=== PATIENT | male | born 1975 | race Caucasian/White ===

== ENCOUNTER 2016-06-05 09:22 | Emergency (ER) | payer SELFPAY ==
[~2016-06-05 09:22] MED LIST: BACT800T5 PO
[2016-06-05 09:33] VITALS: BP 137/81; PULSE 17; PULSE 81; RESP 15; TEMP 97.9; O2SAT 97
[2016-06-05] MEDS ORDERED: SODIUM CHLOR 0.9% 1000 ML INJ 1,000 ML IV ONE (10:00)
[2016-06-05] MEDS ORDERED: KETOROLAC TROMETHAMINE 30 MG/ML (IVP) VIAL IV PUSH ONE (10:00)
[2016-06-05 10:18] LABS: BACTERIA, URINE RARE /hpf; BLOOD, URINE NEG (NEG); COMMENT (UR) CULT NOT INDICATED; CULTURE IF INDICATED CULT NOT INDICATED; GLUCOSE,URINE NEG (NEG); KETONE, URINE NEG (NEG); NITRITE,URINE NEG (NEG); URINE COLOR YELLOW (YELLW/STRAW)
[2016-06-05 10:20] LABS: AUTOMATED NEUTROPHIL # 5.4 TH/MM3 (1.8-7.7); BASOPHIL % 0.3 % (0.0-2.0); EOSINOPHIL # 0.4 TH/MM3 (0-0.4); HEMATOCRIT 49.5 % (39.0-51.0); HEMO FLAGS DIFF FINAL; LYMPH % 27.1 % (9.0-44.0); LYMPHOCYTE # 2.5 TH/MM3 (1.0-4.8); MEAN CELL VOLUME 86.3 FL (80.0-100.0); MEAN CORPUSCULAR HEMOGLOBIN 28.9 PG (27.0-34.0); MEAN CORPUSCULAR HGB CONC 33.5 % (32.0-36.0); MONO % 9.3 % (0.0-8.0); NEUT % 59.3 % (16.0-70.0); PLATELET COUNT 196 TH/MM3 (150-450); RED BLOOD COUNT 5.74 MIL/MM3 (4.50-5.90); RED CELL DISTRIBUTION WIDTH 13.3 % (11.6-17.2); WHITE BLOOD COUNT 9.1 TH/MM3 (4.0-11.0)
[2016-06-05 10:29] LABS: POTASSIUM 4.5 MEQ/L (3.5-5.1)
[2016-06-05 10:31] LABS: INDIRECT BILIRUBIN 0.4 MG/DL (0.0-0.8); TOTAL BILIRUBIN ADULT 0.5 MG/DL (0.2-1.0)
--- NOTE | 2016-06-05 11:16 | RADRPT ---
EXAM DATE/TIME: 06/05/2016 10:37 [facility] COMPARISON: No previous studies available for comparison. INDICATIONS : Right flank pain for 4-5 days ORAL CONTRAST: No oral contrast ingested. RADIATION DOSE: 5.23 CTDIvol (mGy) MEDICAL HISTORY : None SURGICAL HISTORY : None. ENCOUNTER: Initial ACUITY: 4 - 6 days PAIN SCALE: 4/10 LOCATION: Right flank TECHNIQUE: Volumetric scanning of the abdomen and pelvis was performed. Using automated exposure control and ad justment of the mA and/or kV according to patient size, radiation dose was kept as low as reasonably achievable to obtain optimal diagnostic quality images. FINDINGS: LOWER LUNGS: The visualized lower lungs are clear. LIVER: Homogeneous density without lesion. There is no dilation of the biliary tree. No calcified gallston es. SPLEEN: Normal size without lesion. PANCREAS: Within normal limits. KIDNEYS: Normal in size and shape. There is no mass, stone, or hydronephrosis. There is a small 3 mm calcific ation in the right pelvis thought to be separate from the right ureter likely representing a phleboli th. ADRENAL GLANDS: Within normal limits. VASCULAR: There is no aortic aneurysm. BOWEL/MESENTERY: The stomach, small bowel, and colon demonstrate no acute abnormality. There is no free intraperitone al air or fluid. The appendix appears normal. ABDOMINAL WALL: Within normal limits. RETROPERITONEUM: There is no lymphadenopathy. BLADDER: No wall thickening or mass. REPRODUCTIVE: Within normal limits. INGUINAL: There is no lymphadenopathy or hernia. MUSCULOSKELETAL: There is anterior spondylolisthesis of L5 on S1 secondary to pars defects. CONCLUSION: No acute abnormality is seen. There is grade 1 anterior spondylolisthesis of L5 on S1 secondary to pa rs defects. Mono Tran MD on June 05, 2016 at 11:11 Board Certified Radiologist. This report was verified electronically.
--- NOTE | 2016-06-05 12:00 | PD ---
HPI Chief Complaint: Abdominal Pain Time Seen by Provider: 09:38 Travel History International Travel<30 days: No Contact w/Intl Traveler<30days: No Traveled to known affect area: No History of Present Illness HPI Patient is a 40-year-old male complaining of right lower quadrant abdominal pain. He says he has had the pain for the past few days, but it got worse today so he came in. He says at some point he did have pain to his right flank. He denies nausea or vomiting. He denies fever or chills. He denies any difficulty urinating. PFSH Past Medical History ADHD: No Cancer: No Cardiovascular Problems: No Diabetes: No Diminished Hearing: No Endocrine: No Gastrointestinal Disorders: No Genitourinary: No Immune Disorder: No Musculoskeletal: No Neurologic: No Psychiatric: No Reproductive: No Respiratory: No Migraines: No Seizures: No Thyroid Disease: No Ulcer: No Past Surgical History AICD: No Arteriovenous Shunt: No Insulin Pump: No Joint Replacement: No Pacemaker: No Other Surgery: No Social History Alcohol Use: Yes Tobacco Use: Yes (2 PACKS DAY) Substance Use: Yes (marijuana) Allergies-Medications (Allergen,Severity, Reaction): Coded Allergies: *MDRO Multi-Drug Resistant Organism (Unverified Adverse Reaction, Unknown , 06/05/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 SKIN: Warm and dry. HEAD: Atraumatic. Normocephalic. EYES: Pupils equal and round. No scleral icterus. ENT: Mucous membranes pink and moist. NECK: Trachea midline. No JVD. CARDIOVASCULAR: Regular rate and rhythm. No murmur appreciated. RESPIRATORY: No accessory muscle use. Clear to auscultation. Breath sounds equal bilaterally. GASTROINTESTINAL: Abdomen soft, non-tender, nondistended. No CVA tenderness. MUSCULOSKELETAL: No obvious deformities. No clubbing. No cyanosis. No edema. NEUROLOGICAL: Awake and alert. No obvious cranial nerve deficits. Motor grossly within normal limits. Normal speech. PSYCHIATRIC: Appropriate mood and affect; insight and judgment normal. Data Data Last Documented VS Vital Signs Date Time Temp Pulse Resp B/P Pulse Ox O2 Delivery O2 Flow Rate FiO2 06/05/16 09:37 20 06/05/16 09:33 97.9 81 137/81 97 Orders Complete Blood Count With Diff (06/05/16 09:56) Basic Metabolic Panel (Bmp) (06/05/16 09:56) Hepatic Functional Panel (06/05/16 09:56) Urinalysis - C+S If Indicated (06/05/16 09:56) Ct Abd/Pel W/O Iv Contrast (06/05/16 ) Ketorolac Inj (Toradol Inj) (06/05/16 10:00) Sodium Chlor 0.9% 1000 Ml Inj (Ns 1000 M (06/05/16 10:00) Labs Laboratory Tests Test 06/05/16 10:00 White Blood Count 9.1 TH/MM3 Red Blood Count 5.74 MIL/MM3 Hemoglobin 16.6 GM/DL Hematocrit 49.5 % Mean Corpuscular Volume 86.3 FL Mean Corpuscular Hemoglobin 28.9 PG Mean Corpuscular Hemoglobin 33.5 % Concent Red Cell Distribution Width 13.3 % Platelet Count 196 TH/MM3 Mean Platelet Volume 8.9 FL Neutrophils (%) (Auto) 59.3 % Lymphocytes (%) (Auto) 27.1 % Monocytes (%) (Auto) 9.3 % Eosinophils (%) (Auto) 4.0 % Basophils (%) (Auto) 0.3 % Neutrophils # (Auto) 5.4 TH/MM3 Lymphocytes # (Auto) 2.5 TH/MM3 Monocytes # (Auto) 0.8 TH/MM3 Eosinophils # (Auto) 0.4 TH/MM3 Basophils # (Auto) 0.0 TH/MM3 CBC Comment DIFF FINAL Differential Comment Urine Color YELLOW Urine Turbidity HAZY Urine pH 7.0 Urine Specific Pryor 1.012 Urine Protein NEG mg/dL Urine Glucose (UA) NEG mg/dL Urine Ketones NEG mg/dL Urine Occult Blood NEG Urine Nitrite NEG Urine Bilirubin NEG Urine Urobilinogen LESS THAN 2.0 MG/DL Urine Leukocyte Esterase NEG Urine RBC LESS THAN 1 /hpf Urine WBC 1 /hpf Urine Bacteria RARE /hpf Microscopic Urinalysis Comment CULT NOT INDICATED Sodium Level 137 MEQ/L Potassium Level 4.5 MEQ/L Chloride Level 103 MEQ/L Carbon Dioxide Level 29.0 MEQ/L Anion Gap 5 MEQ/L Blood Urea Nitrogen 14 MG/DL Creatinine 1.06 MG/DL Estimat Glomerular Filtration 78 ML/MIN Rate Random Glucose 95 MG/DL Calcium Level 9.1 MG/DL Total Bilirubin 0.5 MG/DL Direct Bilirubin 0.1 MG/DL Indirect Bilirubin 0.4 MG/DL Aspartate Amino Transf 15 U/L (AST/SGOT) Alanine Aminotransferase 22 U/L (ALT/SGPT) Alkaline Phosphatase 92 U/L Total Protein 7.6 GM/DL Albumin 4.0 GM/DL [facility] Medical Decision Making Medical Screen Exam Complete: Yes Emergency Medical Condition: Yes Medical Record Reviewed: Yes Differential Diagnosis UTI versus pyelonephritis versus renal stone Narrative Course Patient is a 40-year-old male comes in complaining of abdominal pain. Exam shows no acute abnormalities. IV established, labs sent. Patient given IV fluids and Toradol. Labs show no acute abnormalities. CT of the abdomen and pelvis performed show no acute abnormalities. Patient was going to be discharged home, however he left before he could be officially discharged. He did not receive discharge instructions. Diagnosis Primary Impression: Abdominal pain Qualified Code: R10.84 - Generalized abdominal pain Disposition: AGAINST MEDICAL ADVICE Condition: Stable Judith Bains MD Jun 05, 2016 12:00
== END 2016-06-05 12:34 | disposition left against medical advice (07) ==
LOC: NEPE 09:22
DX: R10.31 Right lower quadrant pain (principal); F17.210 Nicotine dependence, cigarettes, uncomplicated; F12.90 Cannabis use, unspecified, uncomplicated
CPT/HCPCS: 74176; 80048; 80076; 81001; 85025; 96361; 96374; 99284; J1885; J7030

== ENCOUNTER 2017-02-01 11:36 | Emergency (ER) | payer SELFPAY ==
[~2017-02-01] VITALS: Ht 177.8 cm; Wt 77.3 kg
[2017-02-01 11:37] VITALS: BP 130/74; RESP 16; TEMP 98.6; O2SAT 98
--- NOTE | 2017-02-01 12:01 | PD ---
HPI Chief Complaint: Back/ Neck Pain or Injury Time Seen by Provider: 12:00 Travel History International Travel<30 days: No Contact w/Intl Traveler<30days: No Traveled to known affect area: No History of Present Illness HPI 41 y male presents with LBP after a slip and fall that occurred 2 days ago. States that he slipped on some slick concrete landing on his buttocks. States his pain is worsened over the last day, describes pain as sharp that radiates from his lower back down his left leg to his knee. His pain is mainly located in the lumbar region that increases with activity and decreases with rest, achy. States he otherwise has constant, moderate pain. Denies loss of bowel or bladder function, denies saddle anesthesia, denies fever, chills, chest pain, shortness of breath. Denies history of IV drug use or personal history of cancer. He does have a history low back pain but has not given him any trouble for some time. PFSH Past Medical History ADHD: No Cancer: No Cardiovascular Problems: No Diabetes: No Diminished Hearing: No Endocrine: No Gastrointestinal Disorders: No Genitourinary: No Immune Disorder: No Musculoskeletal: No Neurologic: No Psychiatric: No Reproductive: No Respiratory: No Migraines: No Seizures: No Thyroid Disease: No Ulcer: No Past Surgical History AICD: No Arteriovenous Shunt: No Insulin Pump: No Joint Replacement: No Pacemaker: No Other Surgery: No Social History Alcohol Use: Yes Tobacco Use: Yes (2 PACKS DAY) Substance Use: Yes (marijuana) Allergies-Medications (Allergen,Severity, Reaction): Coded Allergies: *MDRO Multi-Drug Resistant Organism (Unverified Adverse Reaction, Unknown , 02/01/17) MRSA (arm wound) - 05/2014 Reported Meds & Prescriptions Reported Meds & Active Scripts Active Medrol Dosepak (Methylprednisolone) 4 Mg Dspk 4 Mg PO DIRECTED Per Pharmacist direction Robaxin (Methocarbamol) 500 Mg Tab 500 Mg PO TID 5 Days Review of Systems Except as stated in HPI: all other systems reviewed are Neg Physical Exam Narrative GENERAL: Well-developed well-nourished SKIN: Focused skin assessment warm/dry. HEAD: Atraumatic. Normocephalic. EYES: Pupils equal and round. No scleral icterus. No injection or drainage. NECK: Trachea midline. No JVD. CARDIOVASCULAR: Regular rate and rhythm. No murmur appreciated. RESPIRATORY: No accessory muscle use. Clear to auscultation. Breath sounds equal bilaterally. MUSCULOSKELETAL: No obvious deformities. No clubbing. No cyanosis. No edema. Left buttocks with obvious muscle spasms and tenderness palpation. BACK: No CVA tenderness. No rash. L2 region midline tenderness to palpation without crepitus. NEUROLOGICAL: Awake and alert. No obvious cranial nerve deficits. Motor grossly within normal limits. Normal speech. Neurovascularly intact PSYCHIATRIC: Appropriate mood and affect; insight and judgment normal. Data Data Last Documented VS Vital Signs Date Time Temp Pulse Resp B/P (MAP) Pulse Ox O2 Delivery O2 Flow Rate FiO2 02/01/17 13:34 02/01/17 11:37 98.6 16 98 Orders Orders Orphenadrine Inj (Norflex Inj) (02/01/17 12:15) Ketorolac Inj (Toradol Inj) (02/01/17 12:15) Spine, Lumbar - Ltd (Ap & Lat) (02/01/17 ) Ed Discharge Order (02/01/17 13:22) [facility] Medical Decision Making Medical Screen Exam Complete: Yes Emergency Medical Condition: Yes Differential Diagnosis Acute lumbago versus sciatica versus cauda equina versus Narrative Course 41 y male presents with LBP after a slip and fall that occurred 2 days ago. States that he slipped on some slick concrete landing on his buttocks. States his pain is worsened over the last day, describes pain as sharp that radiates from his lower back down his left leg to his knee. His pain is mainly located in the lumbar region that increases with activity and decreases with rest, achy. States he otherwise has constant, moderate pain. Denies loss of bowel or bladder function, denies saddle anesthesia, denies fever, chills, chest pain, shortness of breath. Denies history of IV drug use or personal history of cancer. He does have a history low back pain but has not given him any trouble for some time. Physical exam: no red flags. Imaging: No acute process, similar findings to previous CT Patient given Toradol and Norflex and ED. He will be discharged with muscle relaxer and Medrol Dosepak. Return to ED for worsening symptoms. Follow-up with primary care physician within 2 days. Diagnosis Primary Impression: Lumbago with sciatica Qualified Codes: M54.42 - Lumbago with sciatica, left side Referrals: Primary Care Physician Additional Instructions: Perform light stretches of the lower back and legs, and alternate heat and ice packs. If you develop increased pain, weakness, fever, chills, or bowel or bladder issues, return to the ED for further treatment and evaluation. Follow up with your primary care physician in 2-3 days. Scripts Methylprednisolone Dosepak (Medrol Dosepak) 4 Mg Dspk 4 MG PO DIRECTED, #1 DSPK 0 Refills Per Pharmacist direction Prov: Rosie Jorgensen DO 02/01/17 Methocarbamol (Robaxin) 500 Mg Tab 500 MG PO TID for Muscle Spasm for 5 Days, TAB 0 Refills Prov: Rosie Jorgensen DO 02/01/17 Disposition: 01 DISCHARGE HOME Condition: Stable Arlene Peguero Feb 01, 2017 12:00
[2017-02-01] MEDS ORDERED: KETOROLAC TROMETHAMINE 60 MG/2 ML (IM) VIAL IM ONE (12:15)
[2017-02-01] MEDS ORDERED: ORPHENADRINE INJ 60 MG/2 ML AMP IM ONE (12:15)
[2017-02-01] MEDS ORDERED: ROBA500T PO (12:28)
[2017-02-01] MEDS ORDERED: MEDR4PAK PO (12:28)
--- NOTE | 2017-02-01 13:18 | RADRPT ---
EXAM DATE/TIME: 02/01/2017 12:31 [facility] COMPARISON: CT ABDOMEN & PELVIS W/O CONTRAST, June 05, 2016, 10:37. INDICATIONS : Fall low mid back pain radiating into left hip to knee. MEDICAL HISTORY : None. SURGICAL HISTORY : None. ENCOUNTER: Initial ACUITY: 2 days PAIN SCORE: 10/10 LOCATION: Left lumbar spine FINDINGS: Patient has chronic L4 pars defects. There is approximately 11 mm of spondylolisthesis of L4 on L5. S imilar findings were seen on the prior CT of the abdomen and pelvis. There is severe L4/L5 disc space narrowing with endplate sclerosis again noted as well. Lumbar spine alignment is otherwise normal. No acute or other fractures are demonstrated. Vertebral b odies have normal height. CONCLUSION: 1. Chronic L4 pars defects with grade one L4/L5 spondylolisthesis and severe L4/L5 disc space narrowi ng. Similar findings were seen on the prior CT. 2. No acute fracture or acute appearing malalignment. Mono Mullins MD on February 01, 2017 at 13:14 Board Certified Radiologist. This report was verified electronically.
== END 2017-02-01 13:33 | disposition home or self-care (01) ==
LOC: NEPK 11:36
DX: M54.42 Lumbago with sciatica, left side (principal); F17.200 Nicotine dependence, unspecified, uncomplicated
CPT/HCPCS: 72100; 96372; 99284; J1885; J2360

== ENCOUNTER 2017-03-11 14:07 | Emergency (ER) | payer SELFPAY ==
[~2017-03-11] VITALS: Ht 177.8 cm; Wt 80.0 kg
[~2017-03-11 14:07] MED LIST changes: -BACT800T5 PO; +MEDR4PAK PO; +ROBA500T PO
[2017-03-11 14:19] VITALS: BP 153/92; PULSE 119; RESP 22; TEMP 98.1; O2SAT 98
[2017-03-11 15:33] LABS: AUTOMATED NEUTROPHIL # 3.8 TH/MM3 (1.8-7.7); BASOPHIL # 0.1 TH/MM3 (0-0.2); BASOPHIL % 0.8 % (0.0-2.0); EOSINOPHIL # 0.2 TH/MM3 (0-0.4); EOSINOPHIL % 2.4 % (0.0-4.0); HEMATOCRIT 49.3 % (39.0-51.0); HEMOGLOBIN 16.3 GM/DL (13.0-17.0); LYMPH % 39.6 % (9.0-44.0); LYMPHOCYTE # 3.1 TH/MM3 (1.0-4.8); MEAN CELL VOLUME 90.1 FL (80.0-100.0); MEAN CORPUSCULAR HEMOGLOBIN 29.9 PG (27.0-34.0); MEAN CORPUSCULAR HGB CONC 33.2 % (32.0-36.0); MONO % 8.6 % (0.0-8.0); MONOCYTE # 0.7 TH/MM3 (0-0.9); NEUT % 48.6 % (16.0-70.0); PLATELET COUNT 265 TH/MM3 (150-450); RED BLOOD COUNT 5.47 MIL/MM3 (4.50-5.90); RED CELL DISTRIBUTION WIDTH 13.7 % (11.6-17.2); WHITE BLOOD COUNT 7.8 TH/MM3 (4.0-11.0)
--- NOTE | 2017-03-11 15:52 | PD ---
HPI Chief Complaint: Alcohol/Drug Intoxication Time Seen by Provider: 14:49 Travel History International Travel<30 days: No Contact w/Intl Traveler<30days: No Traveled to known affect area: No History of Present Illness HPI 41 YO M presents to the ED under Hernandez act for evaluation. Patient admits to chronic alcoholism, unable to quantify how much alcohol he drank today. He denies suicidal ideation. He endorses homicidal ideation. He is very angry angry and "wants to kill everybody." No specific plan. He states that he wants to get clean and go back to [place] to be near his children. He states that he wants to be evaluated by the psychiatrist. He states that he wants to go to [facility]. He complains of hunger . He denies any other somatic complaints. He endorses smoking cigarettes and marijuana. He denies other illicit drug use. PFSH Past Medical History ADHD: Yes Cancer: No Cardiovascular Problems: No Diabetes: No Diminished Hearing: No Endocrine: No Gastrointestinal Disorders: No Genitourinary: No Immune Disorder: No Musculoskeletal: No Neurologic: No Psychiatric: No Reproductive: No Respiratory: No Migraines: No Seizures: No Thyroid Disease: No Ulcer: No Tetanus Vaccination: Unknown ?: Not Past Surgical History Surgical History: No Previous Surgery AICD: No Arteriovenous Shunt: No Insulin Pump: No Joint Replacement: No Pacemaker: No Other Surgery: No Social History Alcohol Use: Yes Tobacco Use: Yes (2 PACKS DAY) Substance Use: Yes (marijuana) Allergies-Medications (Allergen,Severity, Reaction): Coded Allergies: *MDRO Multi-Drug Resistant Organism (Unverified Adverse Reaction, Unknown , 02/01/17) MRSA (arm wound) - 05/2014 Reported Meds & Prescriptions Reported Meds & Active Scripts Active Review of Systems Except as stated in HPI: all other systems reviewed are Neg Physical Exam Narrative GENERAL: Well-nourished, well-developed white male in no acute distress. PSYCHIATRIC: No delusional thought processes. No hallucinations. Occasionally tearful. SKIN: Focused skin assessment warm/dry. Tattoos noted HEAD: Normocephalic. EYES: No scleral icterus. No injection or drainage. NECK: Supple, trachea midline. No JVD or lymphadenopathy. CARDIOVASCULAR: Regular rate and rhythm without murmurs, gallops, or rubs. RESPIRATORY: Breath sounds are and equal bilaterally. No accessory muscle use. GASTROINTESTINAL: Abdomen soft, non-tender, nondistended. MUSCULOSKELETAL: No cyanosis, or edema. BACK: Nontender without obvious deformity. No CVA tenderness. Data Data Last Documented VS Vital Signs Date Time Temp Pulse Resp B/P (MAP) Pulse Ox O2 Delivery O2 Flow Rate FiO2 03/11/17 14:19 98.1 119 22 153/92 (112) 98 Orders Orders Complete Blood Count With Diff (03/11/17 14:58) Comprehensive Metabolic Panel (03/11/17 14:58) Psych Screen (03/11/17 14:58) Drug Screen, Random Urine (03/11/17 14:58) Alcohol (Ethanol) (03/11/17 14:58) Diet Regular Basic (03/11/17 Dinner) Nicotine 21 Mg Patch.24 Hr (Habitrol 21 (03/11/17 16:00) Labs Laboratory Tests Test 03/11/17 15:05 03/11/17 15:15 White Blood Count 7.8 TH/MM3 Red Blood Count 5.47 MIL/MM3 Hemoglobin 16.3 GM/DL Hematocrit 49.3 % Mean Corpuscular Volume 90.1 FL Mean Corpuscular Hemoglobin 29.9 PG Mean Corpuscular Hemoglobin Concent 33.2 % Red Cell Distribution Width 13.7 % Platelet Count 265 TH/MM3 Mean Platelet Volume 8.0 FL Neutrophils (%) (Auto) 48.6 % Lymphocytes (%) (Auto) 39.6 % Monocytes (%) (Auto) 8.6 % Eosinophils (%) (Auto) 2.4 % Basophils (%) (Auto) 0.8 % Neutrophils # (Auto) 3.8 TH/MM3 Lymphocytes # (Auto) 3.1 TH/MM3 Monocytes # (Auto) 0.7 TH/MM3 Eosinophils # (Auto) 0.2 TH/MM3 Basophils # (Auto) 0.1 TH/MM3 CBC Comment DIFF FINAL Differential Comment Blood Urea Nitrogen 9 MG/DL Creatinine 0.96 MG/DL Random Glucose 87 MG/DL Total Protein 7.5 GM/DL Albumin 3.8 GM/DL Calcium Level 8.4 MG/DL Alkaline Phosphatase 115 U/L Aspartate Amino Transf (AST/SGOT) 22 U/L Alanine Aminotransferase (ALT/SGPT) 20 U/L Total Bilirubin 0.2 MG/DL Sodium Level 141 MEQ/L Potassium Level 3.8 MEQ/L Chloride Level 107 MEQ/L Carbon Dioxide Level 26.0 MEQ/L Anion Gap 8 MEQ/L Estimat Glomerular Filtration Rate 87 ML/MIN Ethyl Alcohol Level 268 MG/DL Urine Opiates Screen NEG Urine Barbiturates Screen NEG Urine Amphetamines Screen NEG Urine Benzodiazepines Screen NEG Urine Cocaine Screen NEG Urine Cannabinoids Screen POS MDM Medical Decision Making Medical Screen Exam Complete: Yes Emergency Medical Condition: Yes Differential Diagnosis Alcohol intoxication versus chronic alcohol abuse versus malingering versus substance-induced mood disorder versus other Narrative Course 41 YO M presents to the ED under Hernandez act for evaluation. Patient admits to chronic alcoholism, unable to quantify how much alcohol he drank today. He denies suicidal ideation. He endorses homicidal ideation. He is very angry angry and "wants to kill everybody." No specific plan. He states that he wants to get clean and go back to [place] to be near his children. He states that he wants to be evaluated by the psychiatrist and go to [facility]. He denies somatic complaints. Vitals reviewed. Physical exam is unremarkable. No concerning abnormalities of lab work. Alcohol 268. Patient is medically cleared for voluntary psychiatric evaluation. Diagnosis Primary Impression: Acute alcohol intoxication Qualified Codes: F10.929 - Alcohol use, unspecified with intoxication, unspecified Afia Hernadez Mar 11, 2017 15:52
[2017-03-11] MEDS ORDERED: NICOTINE 21 MG/24 HR PATCH T-DERMAL ONE (16:00)
[2017-03-11 16:02] LABS: ALBUMIN 3.8 GM/DL (3.4-5.0); ALT (GPT) 20 U/L (12-78); AST (GOT) 22 U/L (15-37); BLOOD UREA NITROGEN 9 MG/DL (7-18); CALCIUM 8.4 MG/DL (8.5-10.1); CHLORIDE 107 MEQ/L (98-107); CREATININE 0.96 MG/DL (0.60-1.30); GLOMERULAR FILTRATION RATE 87 ML/MIN (>89); GLUCOSE,RANDOM 87 MG/DL (74-106); SODIUM (NA) 141 MEQ/L (136-145)
[2017-03-11 16:05] LABS: ALKALINE PHOSPHATASE 115 U/L (45-117); TOTAL BILIRUBIN ADULT 0.2 MG/DL (0.2-1.0); TOTAL PROTEIN 7.5 GM/DL (6.4-8.2)
[2017-03-11] MEDS ORDERED: LORazepam 1 MG TAB PO PRN (18:15)
[2017-03-11] MEDS ORDERED: LORazepam 2 MG TAB PO PRN (18:15)
[2017-03-11] MEDS ORDERED: FLUMAZENIL 0.5 MG/5 ML VIAL IV PUSH PRN (18:15)
[2017-03-12 02:28] VITALS: BP 125/88
== END 2017-03-12 02:40 | disposition home or self-care (01) ==
LOC: NEPD 14:07
DX: F10.129 Alcohol abuse with intoxication, unspecified (principal); R45.850 Homicidal ideations; F90.9 Attention-deficit hyperactivity disorder, unspecified type; F17.200 Nicotine dependence, unspecified, uncomplicated
CPT/HCPCS: 80053; 80307; 85025; 99285